=== PATIENT | female | born 1980 | race Hispanic/Latino ===

== ENCOUNTER 2016-09-25 12:57 | Outpatient (CLI) | payer OTHER ==
--- NOTE | 2016-09-25 14:09 | XRay Report ---
BILATERAL ELBOWS, 2 VIEWS History: Elbow pain. Findings: Normal bone mineralization. No acute osseous findings or joint pathology is appreciated. The soft tissues are unremarkable. Impression: Normal bilateral elbows.
== END 2016-09-25 12:58 | disposition home or self-care (01) ==
LOC: XRAY 12:57
PROVIDERS: ATTEND Internal Medicine Rheumatology
DX: M25.529 Pain in unspecified elbow (principal)